=== PATIENT | female | born 1970 | race African-American/Black ===

== ENCOUNTER → 2019-09-16 | Outpatient (CLI) | payer OTHER | LOC: MHCPAIN 11:09 | DX: M47.812 Spondylosis without myelopathy or radiculopathy, cervical region (principal); M54.2 Cervicalgia; R51 Headache; G89.29 Other chronic pain; M54.12 Radiculopathy, cervical region | CPT/HCPCS: G0463 ==

== ENCOUNTER → 2019-09-25 | Outpatient (CLI) | payer OTHER | LOC: MHCPAIN 12:57 | DX: M47.812 Spondylosis without myelopathy or radiculopathy, cervical region (principal); M54.2 Cervicalgia; M54.12 Radiculopathy, cervical region | CPT/HCPCS: J1100; Q9967 ==

== ENCOUNTER → 2019-10-06 | Outpatient (CLI) | payer OTHER | LOC: MHCPAIN 09:08 | DX: M47.812 Spondylosis without myelopathy or radiculopathy, cervical region (principal); M54.81 Occipital neuralgia; M54.2 Cervicalgia; R51 Headache; G89.29 Other chronic pain | CPT/HCPCS: G0463 ==

== ENCOUNTER → 2019-10-16 | Outpatient (CLI) | payer OTHER | LOC: MHCPAIN 07:52 | DX: M47.812 Spondylosis without myelopathy or radiculopathy, cervical region (principal); M54.2 Cervicalgia; R51 Headache ==

== ENCOUNTER → 2019-10-22 | Outpatient (CLI) | payer OTHER | LOC: MHCPAIN 08:05 | DX: M47.817 Spondylosis without myelopathy or radiculopathy, lumbosacral region (principal); M50.90 Cervical disc disorder, unspecified, unspecified cervical region; M96.1 Postlaminectomy syndrome, not elsewhere classified; M53.3 Sacrococcygeal disorders, not elsewhere classified; M54.5 Low back pain | CPT/HCPCS: G0463; J1100; Q9967 ==

== ENCOUNTER → 2019-10-23 | Outpatient (CLI) | payer OTHER | LOC: MHCPAIN 08:28 | DX: M47.817 Spondylosis without myelopathy or radiculopathy, lumbosacral region (principal); M96.1 Postlaminectomy syndrome, not elsewhere classified; M54.16 Radiculopathy, lumbar region ==

== ENCOUNTER → 2019-11-05 | Outpatient (CLI) | payer OTHER | LOC: MHCPAIN 08:08 | DX: M47.817 Spondylosis without myelopathy or radiculopathy, lumbosacral region (principal); M54.5 Low back pain; M96.1 Postlaminectomy syndrome, not elsewhere classified; M50.90 Cervical disc disorder, unspecified, unspecified cervical region; M54.12 Radiculopathy, cervical region | CPT/HCPCS: G0463 ==

== ENCOUNTER → 2019-11-06 | Outpatient (CLI) | payer OTHER | LOC: MHCPAIN 12:52 | DX: M47.817 Spondylosis without myelopathy or radiculopathy, lumbosacral region (principal); M54.5 Low back pain; M53.3 Sacrococcygeal disorders, not elsewhere classified; M54.16 Radiculopathy, lumbar region | CPT/HCPCS: J1100; Q9967 ==

== ENCOUNTER → 2019-11-17 | Outpatient (CLI) | payer OTHER | LOC: MHCPAIN 10:01 | DX: M47.817 Spondylosis without myelopathy or radiculopathy, lumbosacral region (principal); M54.5 Low back pain; M96.1 Postlaminectomy syndrome, not elsewhere classified; G89.29 Other chronic pain | CPT/HCPCS: G0463 ==